=== PATIENT | male | born 2000 | race Two or more races ===

== ENCOUNTER 2023-08-28 12:13 | Outpatient (REF) | payer OTHER, SELFPAY | END 2023-08-28 12:14 | disposition home or self-care (01) | LOC: HO.LAB 12:13 | PROVIDERS: Visit Provider Family Medicine | DX: R53.83 Other fatigue (principal); E04.1 Nontoxic single thyroid nodule | CPT/HCPCS: 36415; 80053; 84439; 84443; 85025 ==

== ENCOUNTER 2023-09-13 14:06 | Outpatient (REF) | payer OTHER, SELFPAY ==
[2023-09-13 15:31] LABS: Albumin Level 4.9 g/dL (3.5-5.0); Bilirubin Direct 0.3 mg/dL (0.0-0.5); Bilirubin Total 0.8 mg/dL (0.0-1.0); Calcium 10.1 mg/dL (8.4-10.2); Lactate Dehydrogenase 135 U/L (118-273); Magnesium 2.1 mg/dL (1.6-2.6); Phosphorus 2.6 mg/dL (2.7-4.5)
[2023-09-14 03:43] LABS: Haptoglobin 128 MG/DL ((30-200))
[2023-09-14 14:39] LABS: Calcium (PTHI) 9.8 mg/dL (8.6-10.3); PTHI 20 pg/mL (16-77)
== END 2023-09-13 14:07 | disposition home or self-care (01) ==
LOC: HO.LAB 14:06
PROVIDERS: PCP Family Medicine; Visit Provider Family Medicine
DX: R17 Unspecified jaundice (principal)
CPT/HCPCS: 36415; 82040; 82247; 82248; 82310; 83010; 83615; 83735; 83970; 84100

== ENCOUNTER 2023-09-21 14:22 | Outpatient (REF) | payer OTHER, SELFPAY | END 2023-09-21 14:23 | disposition home or self-care (01) | LOC: HO.LAB 14:22 | PROVIDERS: PCP Family Medicine; Visit Provider Family Medicine | DX: R17 Unspecified jaundice (principal) | CPT/HCPCS: 81003 ==

== ENCOUNTER 2024-03-22 14:07 | Outpatient (REF) | payer OTHER, SELFPAY ==
[2024-03-22 16:05] LABS: Vitamin D 25-OH Total 21.8 ng/mL (>30)
[2024-03-24 23:58] LABS: TS Negative Control Passed; TS Panel A 0; TS Panel B 0; TS Positive Control Passed; TSpotTB Negative (Negative)
[2024-03-27 14:27] LABS: VITAMIN D (1,25 OH) D3 66 pg/mL; Vit D (1,25-Dihydroxy) Total 66 pg/mL (18-72); Vitamin D (1,25 OH) D2 <8 pg/mL
== END 2024-03-22 14:08 | disposition home or self-care (01) ==
LOC: HO.LAB 14:07
PROVIDERS: Absent Provider Family Medicine; PCP Family Medicine; Visit Provider Pediatrics
DX: E83.52 Hypercalcemia (principal)
CPT/HCPCS: 36415; 82306; 82652; 86481